=== PATIENT | female | born 1960 | race Two or more races ===

== ENCOUNTER 2020-02-28 14:32 | Emergency (ER) | payer MEDICARE, MEDICAID ==
[~2020-02-28] VITALS: Ht 165.1 cm; Wt 63.5 kg
[2020-02-28 14:36] VITALS: BP 129/72
[2020-02-28] MEDS ORDERED: ACETAMINOPHEN 325MG TABLET PO ONE (15:00)
[2020-02-28] MEDS ORDERED: TETANUS, DIPHTHERIA, PERTUSSIS VAC/PF 0.5ML (>7YR OLD) IM ONE (15:00)
[2020-02-28] MEDS ORDERED: BACITRACIN ZINC OINT UDPKT TOP ONE (15:00)
[2020-02-28] MEDS ORDERED: CEPHALEXIN 250MG CAPSULE PO ONE (15:30)
== END 2020-02-28 15:40 | disposition home or self-care (01) ==
LOC: ER 14:32
DX: L03.011 Cellulitis of right finger (principal); J44.9 Chronic obstructive pulmonary disease, unspecified; F20.9 Schizophrenia, unspecified
CPT/HCPCS: 10060; 90471; 90715; 99284